=== PATIENT | female | born 2000 | race Caucasian/White ===

== ENCOUNTER 2020-03-31 14:33 | Outpatient (REF) | payer OTHER, SELFPAY | END 2020-03-31 14:34 | disposition home or self-care (01) | LOC: HO.LAB 14:33 | PROVIDERS: PCP Pediatrics; Visit Provider Internal Medicine | DX: Z20.828 Contact with and (suspected) exposure to other viral communicable diseases (principal) | CPT/HCPCS: C9803; U0003 ==

== ENCOUNTER 2020-05-06 07:56 | Outpatient (REF) | payer OTHER, SELFPAY | END 2020-05-06 07:57 | disposition home or self-care (01) | LOC: HO.LAB 07:56 | PROVIDERS: PCP Pediatrics; Visit Provider Internal Medicine | DX: Z20.828 Contact with and (suspected) exposure to other viral communicable diseases (principal) | CPT/HCPCS: C9803; U0003 ==

== ENCOUNTER 2020-12-07 21:11 | Emergency (ER) | payer OTHER, SELFPAY ==
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
[2020-12-07 21:28] VITALS: BP 116/76; PULSE 74; RESP 18; TEMP 37.1; O2SAT 100; BMI 23.4
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
[2020-12-07 22:15] LABS: UPreg QC Valid YES; Urine Pregnancy NEGATIVE (NEGATIVE)
[2020-12-07] MEDS: Acetaminophen 325 MG TABLET 975 MG PO (22:32)
--- NOTE | 2020-12-07 22:45 | PC.NURSE ---
Pt has moderate swelling at bridge of nose. Ice has been applied since arrival to EM. No unilat neuro deficits. PERRLA. lights down for comfort. Aware that she is NPO untill ct results. Mom at bedside.
== END 2020-12-07 23:24 | disposition home or self-care (01) ==
PROVIDERS: Physician Assistant; Emergency Provider Internal Medicine; PCP Pediatrics
DX: S02.2XXA Fracture of nasal bones, initial encounter for closed fracture (principal); W20.8XXA Other cause of strike by thrown, projected or falling object, initial encounter; Y93.9 Activity, unspecified; Y92.009 Unspecified place in unspecified non-institutional (private) residence as the place of occurrence of the external cause; Y99.9 Unspecified external cause status
CPT/HCPCS: 70486; 81025; 99283; 99284

== ENCOUNTER 2021-03-19 13:27 | Outpatient (REF) | payer OTHER, SELFPAY ==
--- NOTE | ~2021-03-19 | XR_ITS ---
EXAMINATION: XR ANKLE, RIGHT XR FOOT, RIGHT CLINICAL INFORMATION: Displaced fracture of the fifth metatarsal COMPARISON: 11/16/2019 TECHNIQUE: 3 views of the right foot. 3 views of the right ankle. FINDINGS: Right foot: There is no fracture or dislocation. Alignment is anatomic. Joint spaces are maintained. The soft tissues are unremarkable. Right ankle: No fracture or dislocation. The ankle mortise is congruent. No ankle joint effusion. The soft tissues appear unremarkable. XR/XR foot RT min 3V IMPRESSION: No osseous abnormality of the right foot or ankle.
--- NOTE | ~2021-03-19 | XR_ITS ---
EXAMINATION: XR ANKLE, RIGHT XR FOOT, RIGHT CLINICAL INFORMATION: Displaced fracture of the fifth metatarsal COMPARISON: 11/16/2019 TECHNIQUE: 3 views of the right foot. 3 views of the right ankle. FINDINGS: Right foot: There is no fracture or dislocation. Alignment is anatomic. Joint spaces are maintained. The soft tissues are unremarkable. Right ankle: No fracture or dislocation. The ankle mortise is congruent. No ankle joint effusion. The soft tissues appear unremarkable. XR/XR ankle RT min 3V IMPRESSION: No osseous abnormality of the right foot or ankle.
== END 2021-03-19 13:28 | disposition home or self-care (01) ==
LOC: HO.HOSX 13:27
PROVIDERS: PCP Pediatrics; Visit Provider Physician Assistant
DX: S92.351A Displaced fracture of fifth metatarsal bone, right foot, initial encounter for closed fracture (principal); S93.601A Unspecified sprain of right foot, initial encounter
CPT/HCPCS: 73610; 73630

== ENCOUNTER → 2021-07-19 13:14 | Outpatient (BNVA) | payer OTHER, SELFPAY | PROVIDERS: Visit Provider Advanced Practice Midwife ==

== ENCOUNTER 2021-07-22 14:43 | Outpatient (REF) | payer OTHER, SELFPAY | END 2021-07-22 14:44 | disposition home or self-care (01) | LOC: HO.LAB 14:43 | PROVIDERS: Visit Provider Otolaryngology | DX: J30.89 Other allergic rhinitis (principal) | CPT/HCPCS: 36415; 82785; 86003 ==

== ENCOUNTER 2021-12-10 07:23 | Outpatient (REF) | payer OTHER, SELFPAY ==
[2021-12-10 11:46] LABS: MANUAL DIFF FLAG NO
[2021-12-10 11:49] LABS: Basophils Percent Auto 0.4 % (0-2); Eosinophils Absolute Auto 0.1 X10*3/uL (0.0-0.4); Hematocrit 35.6 % (37.0-47.0); Hemoglobin 11.8 g/dl (12.0-16.0); Imm Gran Abs Auto 0.03 X10*3/uL (0.00-0.03); Imm Gran Pct Auto 0.3 % (0.0-0.4); Lymphocytes Absolute Auto 3.3 X10*3/uL (1.2-4.9); Lymphocytes Percent Auto 33.3 % (20-40); Mean Corpuscular HGB Conc 33.1 g/dl (31.0-35.0); Mean Corpuscular Hemoglobin 28.9 pg (27.0-33.0); Mean Corpuscular Volume 87.3 fL (80.0-98.0); Mean Platelet Volume 10.8 fL (9.4-12.3); Monocytes Absolute Auto 0.6 X10*3/uL (0.1-1.2); Monocytes Percent Auto 5.7 % (2-11); Neutrophils Absolute Auto 5.9 x10*3/uL (2.0-8.3); Neutrophils Percent Auto 59.3 % (45-73); Platelet Count 294 X10*3/uL (160-400); Red Blood Count 4.08 X10*6/uL (4.20-5.50); Red Cell Distribution Width 12.8 % (11.0-16.0)
[2021-12-10 12:02] LABS: Alanine Aminotransferase 16 U/L (0-31); Albumin Level 4.1 g/dL (3.5-5.0); Alkaline Phosphatase 69 U/L (39-117); Anion Gap 12 (12-20); Aspartate Amino Transferase 18 U/L (5-31); Bilirubin Total 0.6 mg/dL (0.0-1.0); Blood Urea Nitrogen 11 mg/dL (9-16); Carbon Dioxide 24 mmol/L (22-29); Chloride 105 mmol/L (96-108); Cholesterol 191 mg/dL; Estimated Glomerular Filt Rate > 60; Glucose Fasting 87 mg/dL (60-99); HDL Cholesterol 64 mg/dL; LDL Cholesterol Calculated 106 mg/dl; Potassium 4.2 mmol/L (3.3-5.1); Sodium 137 mmol/L (135-145); Total Protein 7.1 g/dL (6.5-8.0); Triglycerides 108 mg/dL
[2021-12-10 12:23] LABS: Syphilis Screen Nonreactive (Nonreactive)
[2021-12-10 12:24] LABS: HIV AB/AG Nonreactive (Nonreactive); HIV Num 1 0.08 S/CO (0.00-0.99)
[2021-12-10 13:46] LABS: CT PCR NOT DETECTED (Not Detect.); NG PCR NOT DETECTED (Not Detect.)
== END 2021-12-10 07:24 | disposition home or self-care (01) ==
LOC: HO.HMGCLDS 07:23
PROVIDERS: Visit Provider Internal Medicine
DX: Z00.00 Encounter for general adult medical examination without abnormal findings (principal); Z13.220 Encounter for screening for lipoid disorders; Z11.4 Encounter for screening for human immunodeficiency virus [HIV]; Z11.3 Encounter for screening for infections with a predominantly sexual mode of transmission; Z11.8 Encounter for screening for other infectious and parasitic diseases
CPT/HCPCS: 80053; 80061; 85025; 86780; 87389; 87491; 87591

== ENCOUNTER 2022-04-04 13:04 | Outpatient (REF) | payer OTHER, SELFPAY | END 2022-04-04 13:05 | disposition home or self-care (01) | LOC: HO.HOSX 13:04 | PROVIDERS: Visit Provider Physician Assistant | DX: Z13.89 Encounter for screening for other disorder (principal) ==

== ENCOUNTER 2022-12-13 08:07 | Outpatient (AMB) | payer OTHER, SELFPAY ==
[2022-12-13 08:09] VITALS: BP 122/74; PULSE 89; O2SAT 100; BMI 27.5
--- NOTE | 2022-12-13 08:09 | A.OFFPC_ITS ---
Vital Signs 12/13/22 08:09 Height 5 ft 5 in Weight 165 lb BMI 27.5 BP 122/74 Blood Pressure Location Lt brachial Position Sitting Pulse 89 Pulse Source Pulse Oximeter Pulse Oximetry (%) 100 Oxygen Delivery Method Room Air Intake Visit Reasons: pe Intake Note: Pt is here today for PE. Allergies No Known Allergies Allergy (Verified 12/13/22 08:10) Medication List - Last Reconciled 12/13/22 by Dora Quintero MD fexofenadine 180 mg PO DAILY norgestimate-ethinyl estradiol 0.25-35 mg-mcg (Sprintec (28)) 1 tab PO DAILY Tobacco use date assessed: 12/13/22 Dental Screening Dental Screen Date: 12/13/22 Did you have a dental visit in the last 12 months?: Yes Did you have a dental problem in the last 6 months where you did not have access to dental care?: No Was dental information given to patient?: Patient has dentist HPI pe HPI Details Pt presents for PE. 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 1. Little interest or pleasure in doing things: not at all 2. Feeling down, depressed, or hopeless: not at all 3. Trouble falling or staying asleep, or sleeping too much: not at all 4. Feeling tired or having little energy: not at all 5. Poor appetite or overeating: not at all 6. Feeling bad about yourself - or that you are a failure or have let yourself or your family down: not at all 7. Trouble concentrating on things, such as reading the newspaper or watching television: not at all 8. Moving or speaking so slowly that other people could have noticed. Or the opposite - being so fidgety or restless that you have been moving around a lot more than usual: not at all 9. Thoughts that you would be better off or of hurting yourself in some way: not at all Total score: 0 Depression Screening Interpretation: Negative Source: Developed by Drs. Howard Jorgensen, Elvie Corona, Rajesh Simpson and colleagues, with an educational zach from [employer]. Thrive Questionnaire Date Thrive assessed: 12/13/22 I am a: Patient What is your living situation today?: I have a steady place to live Within the past 12 months, did the food you bought not last and you didn't have the money to get more?: Never true Within the past 12 months, did you worry whether your food would run out before you got money to buy more?: Never true Do you have trouble paying for medicines?: No Do you have trouble getting transportation to medical appointments?: No Do you have trouble paying your heating and electricity bill?: No Do you have trouble taking care of your child, family member or friend?: No Do you have trouble with day-to-day activities such as bathing, preparing meals, shopping, managing finances, etc.?: No Are you currently unemployed and looking for a job?: No Are you interested in more education?: No Please select the resources that you would like help with: None Currently or been in a relationship where the following occur: no concerns reported AUDIT C Alcohol Use Questionnaire (AUDIT-C) 1. How often do you have a drink containing alcohol?: 2-4 times a month 2. How many drinks containing alcohol do you have on a typical day when you are drinking?: 1 or 2 3. How often do you have six or more drinks on one occasion?: Never Total Score: 2 HEIDI-7 AMB Questionnaire HEIDI-7 Date HEIDI - 7 assessed: 12/13/22 Feeling nervous, anxious, or on edge: 0 = Not at all Not being able to stop or control worryin = Not at all Worrying too much about different things: 0 = Not at all Trouble relaxin = Not at all Being so restless that it is hard to sit still: 0 = Not at all Becoming easily annoyed or irritable: 0 = Not at all Feeling afraid as if something awful might happen: 0 = Not at all Total HEIDI-7 score (0-4 normal; 5-9 mild; 10-14 moderate; 15-21 severe): 0 Source: Developed by Drs. Howard Jorgensen, Elvie Corona, Rajesh Simpson and colleagues, with an educational zach from [employer]. Review of Systems Const All systems reviewed & are unremarkable except as noted in HPI and below Reports no additional complaints Eyes Reports no additional complaints ENT Reports no additional complaints Card Reports no additional complaints Resp Reports no additional complaints GI Reports no additional complaints Reports no additional complaints Physical exam (Primary Care) Vital Signs: Last Vital Signs Pulse 89 12/13/22 08:09 BP 122/74 12/13/22 08:09 Pulse Ox 100 12/13/22 08:09 Oxygen Delivery Method Room Air 12/13/22 08:09 BMI result Body Mass Index 27.5 Tobacco/Smoking Status: Tobacco use Status Tobacco use date assessed 12/13/22 12/13/22 08:14 Patient Tobacco Use Status Never used Tobacco 12/13/22 08:14 e-Cigarette/Vaping Use Never Used 12/13/22 08:14 PHQ-9: PHQ-9 Score PHQ-9: Total score 0 12/13/22 08:14 Depression Screening Interpretation: Negative Thrive Assessment: Date of Thrive Assessment Date Thrive assessed 12/13/22 12/13/22 08:14 Currently or been in a relationship where the following occur: no concerns reported Const General: no acute distress HENMT Head: Yes normal to inspection Ears: hearing grossly normal bilaterally Mouth: Normal oral and palatal mucosa present Throat: Yes posterior oropharynx normal Eyes General: appearance normal, both eyes and all related structures Neck Neck: Yes no lymphadenopathy and Yes supple Resp Effort & Inspection: normal respiratory effort Auscultation: clear to auscultation bilaterally Cardio Rhythm: regular rhythm Heart sounds: S1 normal heart sound present and S2 normal heart sound present GI Inspection: Yes normal to inspection Palpation (GI): Soft to palpation Percussion: Yes normal to percussion Auscultation: normal bowel sounds Assessment and Plan Assessment & Plan (1) Annual physical exam: Code(s): Z00.00 - Encounter for general adult medical examination without abnormal findings Plan: Well-balanced diet regular exercise discussed with the patient to have a blood work today. 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 Panel Today Z00.00 - Encounter for general adult medical examination without abnormal findings Medications: New fexofenadine 180 mg PO DAILY 90 tabs 3RF Refilled norgestimate-ethinyl estradiol 0.25-35 mg-mcg (Sprintec (28)) 1 tab PO DAILY 84 tabs 3RF Coding Level of Care Code Est Pt Prev Care 18-39y(22650) Diagnoses Annual physical exam Z00.00
== END 2022-12-13 08:52 | disposition home or self-care (01) ==
PROVIDERS: Visit Provider Internal Medicine
DX: Z00.00 Encounter for general adult medical examination without abnormal findings (principal)
CPT/HCPCS: 99395

== ENCOUNTER 2022-12-13 08:48 | Outpatient (REF) | payer OTHER, SELFPAY ==
[2022-12-13 11:15] LABS: MANUAL DIFF FLAG NO
[2022-12-13 11:54] LABS: Basophils Percent Auto 0.5 % (0-2); Eosinophils Absolute Auto 0.1 X10*3/uL (0.0-0.4); Eosinophils Percent Auto 0.6 % (0-4); Hematocrit 38.6 % (37.0-47.0); Hemoglobin 12.4 g/dl (12.0-16.0); Imm Gran Abs Auto 0.02 X10*3/uL (0.00-0.03); Imm Gran Pct Auto 0.2 % (0.0-0.4); Lymphocytes Absolute Auto 2.5 X10*3/uL (1.2-4.9); Lymphocytes Percent Auto 30.1 % (20-40); Mean Corpuscular HGB Conc 32.1 g/dl (31.0-35.0); Mean Corpuscular Hemoglobin 28.2 pg (27.0-33.0); Mean Corpuscular Volume 87.7 fL (80.0-98.0); Mean Platelet Volume 10.5 fL (9.4-12.3); Monocytes Absolute Auto 0.6 X10*3/uL (0.1-1.2); Neutrophils Absolute Auto 5.1 x10*3/uL (2.0-8.3); Neutrophils Percent Auto 61.6 % (45-73); Platelet Count 331 X10*3/uL (160-400); Red Cell Distribution Width 12.7 % (11.0-16.0); White Blood Count 8.3 X10*3/uL (4.8-10.8)
[2022-12-13 12:26] LABS: Alanine Aminotransferase 17 U/L (0-31); Alkaline Phosphatase 87 U/L (39-117); Anion Gap 9 (12-20); Aspartate Amino Transferase 16 U/L (5-31); Bilirubin Total 0.3 mg/dL (0.0-1.0); Blood Urea Nitrogen 11 mg/dL (9-16); Calcium 9.9 mg/dL (8.4-10.2); Carbon Dioxide 28 mmol/L (22-29); Chloride 106 mmol/L (96-108); Estimated Glomerular Filt Rate > 60; Glucose Random 83 mg/dL (60-115); Iron 117 mcg/dL (30-160); Percent Iron Saturation 35 % (15-50); Sodium 139 mmol/L (135-145); Total Iron Binding Capacity 333 mcg/dL (228-428); Total Protein 7.5 g/dL (6.5-8.0); Unsaturated Iron Binding 216 ug/dL
[2022-12-13 13:28] LABS: Vitamin B12 343 pg/mL (200-900)
== END 2022-12-13 08:49 | disposition home or self-care (01) ==
LOC: HO.HMGCLDS 08:48
PROVIDERS: PCP Internal Medicine; Visit Provider Internal Medicine
DX: Z00.00 Encounter for general adult medical examination without abnormal findings (principal)
CPT/HCPCS: 36415; 80053; 82607; 82746; 83540; 85025

== ENCOUNTER 2022-12-28 17:38 | Emergency (ER) | payer OTHER, SELFPAY ==
--- NOTE | ~2022-12-28 | XR_ITS ---
EXAMINATION: XR FINGER, LEFT CLINICAL INFORMATION: Crush injury to the middle finger. COMPARISON: None available. TECHNIQUE: Three views of the left hand third digit. FINDINGS: No fracture or dislocation. Alignment is maintained. Joint spaces are maintained. Soft tissue irregularity at the palmar aspect of the distal third digit. No radiopaque foreign body. XR/XR finger LT min 2V IMPRESSION: Soft tissue injury of the distal third digit. No radiopaque foreign body. No fracture or malalignment.
[2022-12-28 18:02] VITALS: BP 133/77; PULSE 91; RESP 18; TEMP 36.7; O2SAT 99; BMI 25.8
--- NOTE | 2022-12-28 18:02 | ED_ITS ---
HPI - Wound/Laceration General Chief Complaint: Wound/Laceration Stated Complaint: Laceration left middle finger Time Seen by Provider: 12/28/22 19:20 Source: patient Mode of arrival: ambulatory Limitations: no limitations History of Present Illness HPI narrative: 22 yo female presenting with a left middle finger injury sustained at work just prior to arrival after 2 metal plates crushed her finger. She states the pain was initially 10/10 and she thought she lost the tip of the finger. She reports pain and a flap of skin on the palmar side of the finger. She is able to flex and extend. No active bleeding. it is numb from holding direct pressure. No other injuries. Onset (ago): minute(s) Extremity Location: left: hand (middle finger) Place: work Patient tetanus UTD: No Context: accidental Associated symptoms: pain and loss of feeling/numbness Treatments prior to arrival: bandage Related Data Previous Rx's Medication Instructions Recorded fexofenadine 180 mg tablet 180 mg PO DAILY #90 tabs 12/13/22 norgestimate 0.25 mg-ethinyl 1 tab PO DAILY #84 tabs 12/13/22 estradiol 35 mcg tablet (Sprintec (28)) Allergies Allergy/AdvReac Type Severity Reaction Status Date / Time No Known Allergies Allergy Verified 12/13/22 08:10 Review of Systems Review of Systems: Yes all other systems are reviewed and are negative [facility] Past Medical History Surgical History H/O: knee surgery Family History Family History Father DM type 2 (diabetes mellitus, type 2) CAD (coronary artery disease), Onset Age: 50 Social History Social History Household Members 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, 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 Oriented X3. No acute distress. HEENT: normal inspection CVS: Normal heart rate and rhythm. Pulses normal. Respiratory: No respiratory distress. Skin: Skin warm and dry. Normal skin color. Normal skin turgor. No rashes. Extremities: left middle finger with a 1.5 cm area of blistering on the pulp with associated superficial avulsion flap, FROM of the digit. cap refill <3 sec Neuro: Oriented X 3. No motor deficit. No sensory deficit. Medications Administered Discontinued Medications Generic Name Dose Route Start Last Admin Trade Name Freq PRN Reason Stop Dose Admin Diphtheria/Tetanus/Acell Pertussis 0.5 ml 12/28/22 18:06 12/28/22 19:25 Diphth,Pertus(Acell),Tet Adult 0.5 Ml Syringe IM 12/28/22 18:07 0.5 ml .ONCE ONE Administration Medical Decision Making Medical Decision Making MDM Narrative: 22 yo female presenting with left middle finger crush injury. FROM on exam. Xray is negative for acute fracture. wound was soaked in antiseptic solution and tdap given. wound debrided and dermabond applied for protective dressing. finger splint provided for protection/comfort. stable for d/c home with supportive care Differential Diagnosis Differential Diagnoses: The differential diagnosis associated with the pres entation includes open fracture, crush injury, superficial avulsion, hematoma Independent Interpretation I performed an independent interpretation of an: Plain X-Ray Interpretation: no apprecaited fx Radiology Impression Discussion of test interpretation with radiology: I have reviewed the radiologist's reading. Radiologist Impression: ?XR/XR finger LT min 2V IMPRESSION: Soft tissue injury of the distal third digit. No radiopaque foreign body. No fracture or malalignment. Independent Historian Clinical information obtained from an independent historian. History obtained from or confirmed by: Parent External Record Review External record reviewed: Prior outpatient labs and Prior outpatient radiology Prescription Management I considered prescription management with: Pain Medication and Antibiotic Critical Care Time Critical Care Time Critical Care Time: No Discharge Plan Discharge Clinical Impression: Crush injury to finger Patient Disposition: Home, Self-Care Instructions: Crush Injury (ED) Additional Instructions: your x-ray today did not show any broken bones the skin glue applied will fall off on its own, usually within 1 week do not get it wet for 24 hours, then you can briefly wash with soap and water then pat dry take motrin and tylenol as needed for pain ice and elevate to help with pain, swelling and throbbing wear the provided finger splint as needed for comfort Prescriptions: No Action fexofenadine 180 mg tablet 180 mg PO DAILY Qty: 90 3RF norgestimate-ethinyl estradiol [Sprintec (28)] 0.25-35 mg-mcg tablet 1 tab PO DAILY Qty: 84 3RF Interventions: ED Discharge Assessment Last Done: 12/28/22 19:53 Discharge Date/Time: 12/28/22 19:55
[2022-12-28] MEDS: Diphth,Pertus(ACell),Tet Adult 0.5 ML SYRINGE IM (19:25)
== END 2022-12-28 19:55 | disposition home or self-care (01) ==
LOC: HO.ED 19:53
PROVIDERS: Emergency Provider Emergency Medicine; PCP Internal Medicine
DX: S67.193A Crushing injury of left middle finger, initial encounter (principal); S61.213A Laceration without foreign body of left middle finger without damage to nail, initial encounter; S60.413A Abrasion of left middle finger, initial encounter; R20.0 Anesthesia of skin; Y29.XXXA Contact with blunt object, undetermined intent, initial encounter; Y93.9 Activity, unspecified; Y92.9 Unspecified place or not applicable; Y99.9 Unspecified external cause status; Z23 Encounter for immunization; Z79.899 Other long term (current) drug therapy
CPT/HCPCS: 29130; 73140; 90471; 90715; 99282; 99284

== ENCOUNTER 2023-04-12 12:17 | Outpatient (REF) | payer OTHER, SELFPAY ==
--- NOTE | ~2023-04-12 | MR_ITS ---
EXAMINATION: MR KNEE WITHOUT CONTRAST, LEFT CLINICAL INFORMATION: MPFL. Possible recurrent tear, left knee. COMPARISON: None available. TECHNIQUE: MRI of the knee without contrast was performed using routine sequences on a high-field scanner. FINDINGS: MENISCI: Medial Meniscus: Intact. Lateral Meniscus: Intact. LIGAMENTS: Cruciate: Intact. Collateral: There is mild edema signal around the MCL proximally, favored to be related to the adjacent MPFL abnormality. MCL is intact. LCL complex is unremarkable. EXTENSOR MECHANISM: The MPFL graft is not well seen within 1.5 cm of the soft tissue anchor at the medial femoral epicondyle, concerning for a tear with lateral retraction of the graft. The graft is mildly edematous at the patellar attachment which could be due to a strain or scar tissue. Quadriceps tendons are intact. ARTICULAR CARTILAGE/BONE: Patellofemoral Compartment: The patella is dislocated laterally on the fully extended images. Patellar articular cartilage appears relatively well preserved without discrete defects. Surface irregularity is suspected at the inferior margins of the medial facet and median ridge. The trochlea is shallow with a lateral inclination angle of 3 degrees and a sulcus angle of 152 degrees. TT-TG distance measures 2 cm. Trochlear cartilage appears normal. Focal marrow edema signal at the anterior margin of the medial femoral condyle may correspond to an osseous contusion. Medial Compartment: Normal. Lateral Compartment: An osseous contusion is present at the lateral margin of the lateral femoral condyle near the sulcus terminalis. No appreciable chondral injury in this region. JOINT FLUID AND BURSAE: Small joint effusion. No Avina's cyst. MR/MR knee LT wo con IMPRESSION: 1. Lateral dislocation of the patella with a tear of the MPFL graft at the femoral attachment site. 2. 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 3. Osseous contusion at the anterior margin of the medial femoral condyle and at the lateral margin of the lateral femoral condyle. 4. Small joint effusion.
== END 2023-04-12 12:18 | disposition home or self-care (01) ==
LOC: HO.MRI 12:17
PROVIDERS: PCP Internal Medicine; Visit Provider Physician Assistant
DX: S83.015D Lateral dislocation of left patella, subsequent encounter (principal)
CPT/HCPCS: 73721

== ENCOUNTER 2023-12-19 08:18 | Outpatient (AMB) | payer OTHER, SELFPAY ==
[2023-12-19 08:25] VITALS: BP 118/74; PULSE 74; O2SAT 100; BMI 25.8
--- NOTE | 2023-12-19 08:25 | A.OFFPC_ITS ---
Vital Signs 12/19/23 08:25 Height 5 ft 6 in Weight 160 lb BMI 25.8 BP 118/74 Blood Pressure Location Lt brachial Position Sitting Pulse 74 Pulse Source Pulse Oximeter Pulse Oximetry (%) 100 Oxygen Delivery Method Room Air Intake Visit Reasons: PE Intake Note: Pt is here today for PE. Allergies pineapple Allergy (Verified 12/19/23 08:29) Hives shrimp Allergy (Verified 12/19/23 08:29) Unknown Tobacco use date assessed: 12/19/23 Dental Screening Dental Screen Date: 12/19/23 Did you have a dental visit in the last 12 months?: Yes Did you have a dental problem in the last 6 months where you did not have access to dental care?: No Was dental information given to patient?: Patient has dentist HPI PE HPI Details Pt presents for PE. 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 1. Little interest or pleasure in doing things: not at all 2. Feeling down, depressed, or hopeless: not at all 3. Trouble falling or staying asleep, or sleeping too much: not at all 4. Feeling tired or having little energy: not at all 5. Poor appetite or overeating: not at all 6. Feeling bad about yourself - or that you are a failure or have let yourself or your family down: not at all 7. Trouble concentrating on things, such as reading the newspaper or watching television: not at all 8. Moving or speaking so slowly that other people could have noticed. Or the opposite - being so fidgety or restless that you have been moving around a lot more than usual: not at all 9. Thoughts that you would be better off or of hurting yourself in some way: not at all Total score: 0 Depression Screening Interpretation: Negative Depression Screening Done: Yes Source: Developed by Drs. Howard Jorgensen, Elvie Corona, Rajesh Simpson and colleagues, with an educational zach from [employer]. Thrive Questionnaire Date Thrive assessed: 12/19/23 I am a: Patient What is your living situation today?: I have a steady place to live Within the past 12 months, did the food you bought not last and you didn't have the money to get more?: Never true Within the past 12 months, did you worry whether your food would run out before you got money to buy more?: Never true Do you have trouble paying for medicines?: No Do you have trouble getting transportation to medical appointments?: No Do you have trouble paying your heating and electricity bill?: No Do you have trouble taking care of your child, family member or friend?: No Do you have trouble with day-to-day activities such as bathing, preparing meals, shopping, managing finances, etc.?: No Are you currently unemployed and looking for a job?: No Are you interested in more education?: No Please select the resources that you would like help with: Housing/Correction Currently or been in a relationship where the following occur: No concerns reported THRIVE Score: 0 AUDIT C Alcohol Use Questionnaire (AUDIT-C) 1. How often do you have a drink containing alcohol?: 2-4 times a month 2. How many drinks containing alcohol do you have on a typical day when you are drinking?: 1 or 2 3. How often do you have six or more drinks on one occasion?: Never Total Score: 2 HEIDI-7 AMB Questionnaire HEIDI-7 Date HEIDI - 7 assessed: 12/19/23 Feeling nervous, anxious, or on edge: 0 = Not at all Not being able to stop or control worryin = Not at all Worrying too much about different things: 0 = Not at all Trouble relaxin = Not at all Being so restless that it is hard to sit still: 0 = Not at all Becoming easily annoyed or irritable: 0 = Not at all Feeling afraid as if something awful might happen: 0 = Not at all Total HEDII-7 score (0-4 normal; 5-9 mild; 10-14 moderate; 15-21 severe): 0 Source: Developed by Drs. Howard Jorgensen, Elvie Corona, Rajesh Simpson and colleagues, with an educational zcah from [employer]. Review of Systems Const All systems reviewed & are unremarkable except as noted in HPI and below Reports no additional complaints Eyes Reports no additional complaints ENT Reports no additional complaints Card Reports no additional complaints Resp Reports no additional complaints GI Reports no additional complaints Reports no additional complaints Musc Reports no additional complaints Physical exam (Primary Care) Vital Signs: Last Vital Signs Pulse 74 12/19/23 08:25 BP 118/74 12/19/23 08:25 Pulse Ox 100 12/19/23 08:25 Oxygen Delivery Method Room Air 12/19/23 08:25 BMI result Body Mass Index 25.8 Tobacco/Smoking Status: Tobacco use Status Tobacco use date assessed 12/19/23 12/19/23 08:30 Patient Tobacco Use Status Never used Tobacco 12/19/23 08:30 e-Cigarette/Vaping Use Never Used 12/19/23 08:27 PHQ-9: PHQ-9 Score PHQ-9: Total score 0 12/19/23 09:12 Depression Screening Interpretation: Negative Thrive Assessment: Date of Thrive Assessment Date Thrive assessed 12/19/23 12/19/23 08:32 Currently or been in a relationship where the following occur: No concerns reported Const General: no acute distress HENMT Head: Yes normal to inspection Face and sinus: Yes normal facial exam Eyes General: appearance normal, both eyes and all related structures Neck Neck: Yes supple Resp Effort & Inspection: normal respiratory effort Auscultation: clear to auscultation bilaterally Cardio Rhythm: regular rhythm Heart sounds: S1 normal heart sound present and S2 normal heart sound present GI Inspection: Yes normal to inspection Palpation (GI): Soft to palpation Percussion: Yes normal to percussion Auscultation: normal bowel sounds Assessment and Plan Assessment & Plan (1) Patellar instability of left knee: Code(s): M25.362 - Other instability, left knee (2) Annual physical exam: Code(s): Z00.00 - Encounter for general adult medical examination without abnormal findings Plan: Well-balanced diet regular physical activity discussed with the patient she will return for fasting blood work. Patient is up-to-date with pelvic exam by Gynecology Coding Level of Care Code Est Pt Prev Care 18-39y(22130) Diagnoses Patellar instability of left knee M25.362 Annual physical exam Z00.00
== END 2023-12-19 10:32 | disposition home or self-care (01) ==
PROVIDERS: PCP Internal Medicine; Visit Provider Internal Medicine
DX: M25.362 Other instability, left knee (principal); Z00.00 Encounter for general adult medical examination without abnormal findings
CPT/HCPCS: 99395

== ENCOUNTER 2024-01-22 20:32 | Emergency (ER) | payer OTHER, SELFPAY ==
--- NOTE | ~2024-01-22 | XR_ITS ---
EXAMINATION: XR FINGER, RIGHT CLINICAL INFORMATION: Injury to the fifth digit COMPARISON: None available. TECHNIQUE: Three views of the right small finger. FINDINGS: The bones and soft tissues are normal. No fracture. Alignment is anatomic. Joint spaces are maintained. XR/XR finger RT min 2V IMPRESSION: Normal finger radiographs. Electronically signed by: Ezequiel Sanz DO 01/22/2024 11:03 PM EDT RP
[2024-01-22 21:07] VITALS: BP 120/72; PULSE 82; RESP 16; TEMP 36.8; O2SAT 100; BMI 26.9
[2024-01-22] MEDS: Lidocaine HCl 1 % 20 ML VIAL 5 ML INFILTRATI (22:14)
--- NOTE | 2024-01-22 22:38 | ED.WOUNDLAC ---
HPI - Wound/Laceration General Chief Complaint: Wound/Laceration Stated Complaint: RT pinky lac Time Seen by Provider: 01/22/24 21:33 Source: patient and family Mode of arrival: ambulatory Limitations: no limitations History of Present Illness ED Provider: Dr. Klarissa Coon HPI narrative: Patient comes to the emergency room complaining of a laceration to the right pinky finger. Patient states that she was slicing vegetables with a mandolin slicer, she accidentally sliced the palmar aspect of her right pinky finger. Patient states that last year she got a tetanus shot for another injury had. Related Data Previous Rx's ?Medication ?Instructions ?Recorded fexofenadine 180 mg tablet 180 mg PO DAILY #90 tabs 12/13/22 norgestimate 0.25 mg-ethinyl 1 tab PO DAILY #84 tabs 11/27/23 estradiol 35 mcg tablet Allergies Allergy/AdvReac Type Severity Reaction Status Date / Time pineapple Allergy Hives Verified 01/22/24 21:14 shrimp Allergy Unknown Verified 01/22/24 21:14 Review of Systems Review of Systems: Constitutional : No Weight loss, No Fever, No Chills, No Night Sweats, No Fatigue, No Malaise ENT/Mouth : No Hearing loss, No Ear Pain, No Nasal Congestion, No Sinus Pain, No Hoarseness, No sore throat, No Rhinorrhea, No Swallowing Difficulty Eyes: No Eye Pain, No Swelling, No Redness, No Foreign Body, No Discharge, No Vision Changes Cardiovascular : No Chest Pain, No SOB, No Dyspnea on Exertion, No Orthopnea, No Edema, No Palpitations Respiratory : No Cough, No Sputum, No Wheezing, No Smoke Exposure, No Dyspnea Gastrointestinal : No Nausea, No Vomiting, No Diarrhea, No Constipation, No abdominal Pain, No Hematochezia, No Melena Genitourinary : no irregular bleeding, No Dysuria, No Urinary Frequency, No Hematuria, No Urinary Incontinence, No Urgency, No Flank Pain, No Urinary Flow Changes, No Hesitancy Musculoskeletal : No joint pain, No Myalgias, No Joint Swelling Skin : Laceration to the palmar aspect of the right pinky finger Neuro : No Weakness, No Numbness, No Paresthesias, No Loss of Consciousness, No Dizziness, No Headache Psych : No Anxiety/Panic, No Depression, No SI/HI/AH/VH, No Social Issues, Heme/Lymph: No Bruising, No Bleeding,No Lymphadenopathy Endocrine : No Polyuria, No Polydipsia, No Temperature Intolerance [facility] Past Medical History Surgical History H/O left knee surgery H/O: knee surgery Family History Family History Father DM type 2 (diabetes mellitus, type 2) CAD (coronary artery disease), Onset Age: 50 Social History Social History Household Members 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, 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[employer], 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 Alcohol intake: never Patient Tobacco Use Status: Never used Tobacco e-Cigarette/Vaping Use: Never Used Advance Directives: No Advance Directives Information Provided: No Do you have a plan to hurt others: No Plan service: No Current occupational status: employed Gender identity: Female Cognitive needs: No Hearing needs: No Vision needs: No Physical Exam Vital Signs: Vital Signs: Last Vital Signs Temp 98.3 F 01/22/24 21:07 Pulse 82 01/22/24 21:07 Resp 16 01/22/24 21:07 BP 120/72 01/22/24 21:07 Pulse Ox 100 01/22/24 21:07 O2 Del Method Room Air 01/22/24 21:07 BMI result Body Mass Index 26.9 Const: Other: Appearance: Alert. Oriented X3. No acute distress. Eyes: Pupils equal, round and reactive to light. ENT: Pharynx normal. Neck: Normal inspection. Neck supple. No lymph nodes noted. No crepitus CVS: Normal heart rate and rhythm. Pulses normal. Normal S1 and S2 Respiratory: No respiratory distress. Breath sounds normal. No Wheezing. No rales Abdomen: Soft and nontender. No rigidity. No distention. Skin: Skin warm and dry. Normal skin color. Normal skin turgor. See extremity below Extremities: No lower extremity edema. No Lacerations. No Rash on the right hand, patient has a 3 cm vertical laceration in the palmar aspect of the right 5th digit. Patient is able to flex and extend the fingers. Finger was visualized under a bloodless field, no tendon injuries visualized Neuro: Oriented X 3. No motor deficit. No sensory deficit. Moving all extremities. No slurred speech. CN 2 through 12 grossly intact Psych: calm, cooperative, normal affect Medications Administered Discontinued Medications Generic Name Dose Route Start Last Admin Trade Name Daniel PRN Reason Stop Dose Admin Lidocaine HCl 5 ml 01/22/24 22:08 01/22/24 22:14 Lidocaine Hcl 1 % 20 Ml Vial INFILTRATI 01/22/24 22:09 5 ml ONCE ONE Administration Medical Decision Making Medical Decision Making MDM Narrative: -patient is up-to-date with her immunizations and Tdap -patient received 7 stitches, tolerated well the procedure Procedures Laceration Laceration 1: Site: upper extremity Side (If applicable): right Size (cm): 3 Description: linear Depth: simple, single layer Local Anesthetic: lidocaine 1% Amount of anesthesia used (mL): 6 Pre-repair: wound explored Skin layer closed with: nylon Size (cm): 5-0 Number of sutures: 7 Technique: simple, interrupted Discharge Plan Discharge Clinical Impression: Laceration Patient Disposition: Home, Self-Care Instructions: Care For Your Stitches (ED), Finger Laceration (ED) Additional Instructions: Your stitches need to be removed in 7-10 days. Please follow-up with your primary care physician tomorrow. If you have any worsening or new symptoms, please return to the emergency room or call 911 Prescriptions: No Action norgestimate-ethinyl estradiol 0.25-35 mg-mcg tablet 1 tab PO DAILY Qty: 84 3RF fexofenadine 180 mg tablet 180 mg PO DAILY Qty: 90 3RF Stand Alone Forms: Work/School Release Print Language: Albanian
[2024-01-22] MEDS: Acetaminophen 325 MG TABLET 650 MG PO (22:48)
[2024-01-22 22:56] VITALS: BP 129/76; PULSE 71; RESP 14; TEMP 36.4; O2SAT 100
== END 2024-01-22 22:57 | disposition home or self-care (01) ==
PROVIDERS: Emergency Provider Emergency Medicine; PCP Internal Medicine
DX: S61.216A Laceration without foreign body of right little finger without damage to nail, initial encounter (principal); W27.4XXA Contact with kitchen utensil, initial encounter; Y93.G3 Activity, cooking and baking; Y92.9 Unspecified place or not applicable; Y99.9 Unspecified external cause status
CPT/HCPCS: 12002; 73140; 99283; 99284

== ENCOUNTER 2024-04-15 10:22 | Outpatient (REF) | payer OTHER, SELFPAY | END 2024-04-15 10:23 | disposition home or self-care (01) | LOC: HO.HOSX 10:22 | PROVIDERS: Visit Provider Physician Assistant | DX: Z13.89 Encounter for screening for other disorder (principal) ==

== ENCOUNTER 2025-01-15 09:02 | Outpatient (REF) | payer OTHER, SELFPAY ==
[2025-01-15 13:16] LABS: MANUAL DIFF FLAG NO
[2025-01-15 13:55] LABS: Appearance Urine Turbid; Glucose Urine UA Negative (Negative); PH 6.0 (5.0-9.0); Specific Gravity - Urine >= 1.030 (1.005-1.025)
[2025-01-15 14:06] LABS: Hematocrit 36.4 % (37.0-47.0); Hemoglobin 11.7 g/dl (12.0-16.0); Imm Gran Abs Auto 0.03 X10*3/uL (0.00-0.03); Imm Gran Pct Auto 0.3 % (0.0-0.4); Lymphocytes Absolute Auto 3.0 X10*3/uL (1.2-4.9); Mean Corpuscular HGB Conc 32.1 g/dl (31.0-35.0); Mean Corpuscular Hemoglobin 28.9 pg (27.0-33.0); Mean Corpuscular Volume 89.9 fL (80.0-98.0); NRBC Abs Auto 0.000 X10*3/uL (0.0-0.012); NRBC Pct Auto 0.0 /100WBC (0.0-0.2); Platelet Count 327 X10*3/uL (160-400); Red Blood Count 4.05 X10*6/uL (4.20-5.50); White Blood Count 9.4 X10*3/uL (4.8-10.8)
[2025-01-15 14:43] LABS: Alanine Aminotransferase 14 U/L (0-31); Albumin Level 4.3 g/dL (3.5-5.0); Alkaline Phosphatase 65 U/L (39-117); Anion Gap 11 (12-20); Aspartate Amino Transferase 20 U/L (5-31); Blood Urea Nitrogen 9 mg/dL (9-16); Calcium 9.2 mg/dL (8.4-10.2); Carbon Dioxide 23 mmol/L (22-29); Chloride 107 mmol/L (96-108); Cholesterol 185 mg/dL (<200); Estimated Glomerular Filt Rate > 60; HDL Cholesterol 63 mg/dL (>40); Potassium 4.0 mmol/L (3.3-5.1); Sodium 137 mmol/L (135-145); Total Protein 7.3 g/dL (6.5-8.0); Triglycerides 99 mg/dL (<150)
[2025-01-16 03:41] LABS: Syphilis Screen Nonreactive (Nonreactive)
[2025-01-16 03:55] LABS: HBS Num1 75.08 mIU/mL (0-7.99); HIV Num 1 0.06 S/CO (0.00-0.99); ~Hepatitis B Surface Antibody REACTIVE (Nonreactive)
[2025-01-16 04:29] LABS: CT PCR Urine NOT DETECTED (Not Detect.); NG PCR Urine NOT DETECTED (Not Detect.)
[2025-01-16 10:52] LABS: Rubeola IgG (Measles) >300.00 AU/mL
== END 2025-01-15 09:03 | disposition home or self-care (01) ==
LOC: HO.HMGCLDS 09:02
PROVIDERS: PCP Internal Medicine; Visit Provider Internal Medicine
DX: Z00.00 Encounter for general adult medical examination without abnormal findings (principal)
CPT/HCPCS: 80053; 80061; 81001; 85025; 86706; 86735; 86762; 86765; 86780; 86787; 87389; 87491; 87591; 96127

== ENCOUNTER 2025-01-15 09:02 | Outpatient (AMB) | payer OTHER, SELFPAY ==
[2025-01-15 09:07] VITALS: BP 118/76; PULSE 63; RESP 18; TEMP 36.7; O2SAT 100; BMI 26.8
--- NOTE | 2025-01-15 09:07 | A.OFFPC_ITS ---
Vital Signs 01/15/25 09:07 Height 5 ft 5 in Weight 161 lb BMI 26.8 BP 118/76 Blood Pressure Location Lt brachial Position Sitting Respiration 18 Pulse 63 Pulse Source Pulse Oximeter Temp 98.1 F Temp Source Oral Pulse Oximetry (%) 100 Oxygen Delivery Method Room Air Intake Visit Reasons: PE Intake Note: Pt is here today for PE. Allergies pineapple Allergy (Verified 01/15/25 09:08) Hives shrimp Allergy (Verified 01/15/25 09:08) Unknown Medication List - Last Reconciled 01/15/25 by Dora Quintero MD fexofenadine 180 mg PO DAILY norgestimate-ethinyl estradiol 0.25-0.035 mg 1 tab PO DAILY Tobacco use date assessed: 01/15/25 Dental Screening Dental Screen Date: 01/15/25 Did you have a dental visit in the last 12 months?: Yes Did you have a dental problem in the last 6 months where you did not have access to dental care?: No Was dental information given to patient?: Patient has dentist HPI PE HPI Details Pt presents for PE. 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 1. Little interest or pleasure in doing things: not at all 2. Feeling down, depressed, or hopeless: not at all 3. Trouble falling or staying asleep, or sleeping too much: not at all 4. Feeling tired or having little energy: not at all 5. Poor appetite or overeating: not at all 6. Feeling bad about yourself - or that you are a failure or have let yourself or your family down: not at all 7. Trouble concentrating on things, such as reading the newspaper or watching television: not at all 8. Moving or speaking so slowly that other people could have noticed. Or the opposite - being so fidgety or restless that you have been moving around a lot more than usual: not at all 9. Thoughts that you would be better off or of hurting yourself in some way: not at all Total score: 0 Depression Screening Interpretation: Negative Depression Screening Done: Yes 78126 - PHQ-9 Billing: Yes Source: Developed by Drs. Howard Jorgensen, Elvie Corona, Rajesh Simpson and colleagues, with an educational zach from [employer]. Thrive Questionnaire Date Thrive assessed: 01/15/25 I am a: Patient What is your living situation today?: I have a steady place to live Within the past 12 months, did the food you bought not last and you didn't have the money to get more?: Never true Within the past 12 months, did you worry whether your food would run out before you got money to buy more?: Never true Do you have trouble paying for medicines?: No Do you have trouble getting transportation to medical appointments?: No Do you have trouble paying your heating and electricity bill?: No Do you have trouble taking care of your child, family member or friend?: No Do you have trouble with day-to-day activities such as bathing, preparing meals, shopping, managing finances, etc.?: No Are you currently unemployed and looking for a job?: No Are you interested in more education?: No Please select the resources that you would like help with: None Currently or been in a relationship where the following occur: No concerns reported THRIVE Score: 0 AUDIT C Alcohol Use Questionnaire (AUDIT-C) 1. How often do you have a drink containing alcohol?: Monthly or less 2. How many drinks containing alcohol do you have on a typical day when you are drinking?: 1 or 2 3. How often do you have six or more drinks on one occasion?: Never Total Score: 1 HEIDI-7 AMB Questionnaire HEIDI-7 Date HEIDI - 7 assessed: 01/15/25 Feeling nervous, anxious, or on edge: 0 = Not at all Not being able to stop or control worryin = Not at all Worrying too much about different things: 0 = Not at all Trouble relaxin = Not at all Being so restless that it is hard to sit still: 0 = Not at all Becoming easily annoyed or irritable: 0 = Not at all Feeling afraid as if something awful might happen: 0 = Not at all Total HEIDI-7 score (0-4 normal; 5-9 mild; 10-14 moderate; 15-21 severe): 0 Source: Developed by Drs. Howard Jorgensen, Elvie Corona, Rajesh Simpson and colleagues, with an educational zach from [employer]. HEIDI-7 Assessment Billing HEIDI-7 Assessment Tool: HEIDI-7 Assessment 47839 Review of Systems Const All systems reviewed & are unremarkable except as noted in HPI and below Reports no additional complaints Eyes Reports no additional complaints ENT Reports no additional complaints Card Reports no additional complaints Resp Reports no additional complaints GI Reports no additional complaints Reports no additional complaints Musc Reports no additional complaints Physical exam (Primary Care) Vital Signs: Last Vital Signs Temp 98.1 F 01/15/25 09:07 Pulse 63 01/15/25 09:07 Resp 18 01/15/25 09:07 BP 118/76 01/15/25 09:07 Pulse Ox 100 01/15/25 09:07 Oxygen Delivery Method Room Air 01/15/25 09:07 BMI result Body Mass Index 26.8 Tobacco/Smoking Status: Tobacco use Status Tobacco use date assessed 01/15/25 01/15/25 09:12 Patient Tobacco Use Status Never used Tobacco 01/15/25 09:12 e-Cigarette/Vaping Use Never Used 01/15/25 09:12 PHQ-9: PHQ-9 Score PHQ-9: Total score 0 01/15/25 09:12 Depression Screening Interpretation: Negative Thrive Assessment: Date of Thrive Assessment Date Thrive assessed 01/15/25 01/15/25 09:12 Currently or been in a relationship where the following occur: No concerns reported Const General: no acute distress HENMT Head: Yes normal to inspection Ears: TM's normal bilaterally Mouth: Normal oral and palatal mucosa present Teeth and gingiva: dentition normal Eyes General: appearance normal, both eyes and all related structures Neck Neck: Yes no lymphadenopathy and Yes supple Chest Breast/axilla inspection: normal inspection of the breasts Breast/axilla palpation: normal palpation of the breasts and normal palpation of the axillae Resp Effort & Inspection: normal respiratory effort Auscultation: clear to auscultation bilaterally Cardio Rhythm: regular rhythm Heart sounds: S1 normal heart sound present and S2 normal heart sound present GI Inspection: Yes normal to inspection Palpation (GI): Soft to palpation Percussion: Yes normal to percussion Auscultation: normal bowel sounds Speculum Exam - Vagina: normal appearance of the vagina Speculum Exam - Cervix: normal appearance of the cervix Bimanual Exam- Adnexa, other: normal adnexae Coding Level of Care Code Est Pt Prev Care 18-39y(74450) Diagnoses Annual physical exam Z00.00 Additional Codes HEIDI-7 Assessment Billing - HEIDI-7 Assessment Tool: HEIDI-7 Assessment 65416 ([id number]) PHQ-9 - 46342 - PHQ-9 Billing: Yes ([id number]) Assessment & Plan Assessment & Plan (1) Annual physical exam: Code(s): Z00.00 - Encounter for general adult medical examination without abnormal findings Category: Medical Plan: Well-balanced diet regular exercise discussed with the patient. Pap smear was sent today. Patient will have a fasting blood work today Orders: Orders Complete Blood Count Auto Diff Today Z00.00 - Encounter for general adult medical examination without abnormal findings Rubella IgG Antibody Today Z00.00 - Encounter for general adult medical examin ation without abnormal findings Varicella IgG Antibody Today Z00.00 - Encounter for general adult medical examination without abnormal findings UA w Microscopic Today Z00.00 - Encounter for general adult medical examination without abnormal findings HIV Ab/Ag Today Z00.00 - Encounter for general adult medical examination without abnormal findings Syphilis Screen Today Z00.00 - Encounter for general adult medical examination without abnormal findings CT NG by PCR Urine Today Z00.00 - Encounter for general adult medical examination without abnormal findings Pap Smear Today Z00.00 - Encounter for general adult medical examination wit hout abnormal findings Comprehensive [place]. Panel Fast Today Z00.00 - Encounter for general adult medical examination without abnormal findings Lipid Panel Today Z00.00 - Encounter for general adult medical examination without abnormal findings Hepatitis B Surface Antibody Today Z00.00 - Encounter for general adult medical examination without abnormal findings Rubeola IgG (Measles) Today Z. - Encounter for general adult medical examination without abnormal findings Mumps Virus IgG Antibody Today Z00.00 - Encounter for general adult medical examination without abnormal findings
--- OUTSIDE RECORDS SUMMARY | 2025-01-15 09:29 | XMS_ITS | Clinical Summary ---
Author Organization [facility] Address [address] [place] [address] Care Team Providers Care Enologist Name Role Phone Patient, Has No Pcp Or Ref Primary Care Provider Unavailable Allergies No known active allergies Medications norgestimate-eth inyl estradioL (ORTHO-CYCLEN, SPRINTEC) 0.25 mg-35 mcg per tablet Take 1 tablet by mouth once a day. Active Social History Tobacco Use Types Packs/Day Years Used Date Smoking Tobacco: Never Smokeless Tobacco: Never Alcohol Use Standard Drinks/Week Comments Yes 1 (1 standard drink = 0.6 oz pur e alcohol) Comments No Sex and Gender Information Value Date Recorded Sex Assigned at Not on file Legal Sex Female 1:37 AM EST Gender Identity Not on file Sexual Orientation Not on file Last Filed Vital Signs Vital Sign Reading Time Taken Comments Blood Pressure 143/88 07/08/2021 1:42 AM EST Pulse 85 07/08/2021 1:42 AM EST Temperature 36.4 C (97.6 F) 07/08/2021 1:42 AM EST Respiratory Rate 16 07/08/2021 1:42 AM EST Oxygen Saturation 100% 07/08/2021 1:42 AM EST Inhaled Oxygen Concentration - - Weight - - Height - - Body Mass Index - - Plan of Treatment Health Maintenance Due Date Last Done Comments HIV Screening 2000 DTaP,Tdap,and Td Vaccines (2 - Td or Tdap) 12/13/2021 12/14/2011 COVID-19 Vaccine (2 - season) 2024 11/10/2020 Alcohol/Substance Use Screening 05/22/2024 Influenza Vaccine (#1) 2025 3, 04/05/2012, 04/28/2010, Additional history exists RSV Vaccine (60+ years old and patients) (1 - 1-dose 75+ series) 12/16/2075 Varicella Vaccines Completed 02/18/2008, 12/28/2006 HPV Vaccines Completed 07/15/2013, 02/19, 01/02/2013 Hepatitis B Vaccines Completed 10/02/2018, 06/26/2001, 01/24/2001 Pneumococcal Vaccine: Pediatric (0-5 Years) and At-Risk Patients (6-50 Years) Aged Out No longer eligible based on patient's age to complete this topic Insurance 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
--- OUTSIDE RECORDS SUMMARY | 2025-01-15 09:29 | XMS_ITS | Patient Health Record ---
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.19) Active confirmed Problem Pain in limb (32084733) Pain in Limb (729.5) Active confirmed Problem Hammer toe (979714582) Hammer toe (735.4) Active confirmed Plan Of Treatment Pending Test Test Name Order Date [id number] , 1-14 10/29/2012 Insurance Providers Payer Name Payer Address Payer Phone Subscriber Number Group Number Insured Name Patient Relationship to Insured Coverage Start Date Coverage End Date [facility] [address] [place] [address] [id number] Diop Child - Insured has Financial Responsibility Medical (General) History Medical History History ICD Code back, hip, knee pain
--- OUTSIDE RECORDS SUMMARY | 2025-01-15 09:29 | XMS_ITS | Clinical Summary ---
Author Organization [facility] Address [address] [place] [address] Care Team Providers Care Assistant Boys Track Coach Name Role Phone Unavailable Primary Care Provider Unavailabl e Allergies Active Allergy Reactions Criticality Noted Date Comments Pineapple 03/22/2022 Hives Shrimp (Diagnostic) 03/22/2022 Hives Medications Norgestimate-Eth Estradiol (ORTHO-CYCLEN) 0.25-35 MG-MCG per tablet Take 1 tablet by mouth 1 (one) time each day Active Fexofenadine HCl ([facility]) 180 MG tablet Take 180 mg by mouth 1 (one) time each day Active Immunizations Immunization Administration Dates Next Due COVID-19, mRNA (Pfizer Pre F all 2022) Monovalent, 30 mcg/0.3 ml 11/10/2020 Covid-19, mRNA (Pfizer Pre F all 2022) Bivalent, 30 mcg/0.3 ml xiomara-sucrose (12+) dose 05/27/2022 HIB (PRP-T) 04/29/2002, 2,04/27/2001,03/03 HPV4 (Gardasil 4) 07/15/2013,03/08/2013,01/03/20 13 Hep A (pedi) 07/12/2017,05/13/2015 Hep B (pedi) 10/02/2018,06/26/2001,01/24/2001 IPV 01/12/2005, 2,04/27/2001,03/03 Influenza (H1N1) - 04/15/2009 Influenza,injectable,MDCK, P rsrv Fr,Quad 04/03/2022,06/14/2018,05/18/2016 Influenza,injectable,quad,Prsrv Fr 05/12,03/04/2019,01/30/2017,03/24 Influenza,injectable,quad,preservative 5 Influenza,split(incl.purifie d surface antigen) 03/08/2013,04/05/2012,04/28/2010 MMR 01/12/2005,12/28/2001 Meningococcal ACWY (Menactra) 12/22/2017, 013 Meningococcal B (Trumenba) 05/30/2019,10/02/2018 Tdap 12/28/2022,11/09/2021,12/14/2011 Varicella 02/18/2008,12/28/2006 Social History Tobacco Use Types Packs/Day Years Used Date Smoking Tobacco: Never Smokeless Tobacco: Never Tobacco Cessation:Counseling Given: Not Answered Alcohol Use Standard Drinks/Week Comments Yes 0 (1 standard drink = 0.6 oz pur e alcohol) occassional Intimate Partner Violence Answer Date R ecorded Fear of Current or Ex-Partner Not on file Emotionally Abused Not on file 12/31/2022 Physically Abused Not on file 12/31/2022 Sexually Abused Not on file 12/31/2022 Feel Safe at Home Not on file 12/31/2022 Comments Unknown Sex and Gender Information Value Date Recorded Sex Assigned at Not on file Legal Sex Female 4:19 PM EDT Gender Identity Not on file Sexual Orientation Not on file Last Filed Vital Signs Vital Sign Reading Time Taken Comments Blood Pressure 131/88 03/22/2022 3:23 PM EDT Pulse 97 03/22/2022 3:23 PM EDT Temperature 36.9 C (98.5 F) 03/22/2022 3:23 PM EDT Respiratory Rate 16 03/22/2022 3:23 PM EDT Oxygen Saturation 99% 03/22/2022 3:23 PM EDT Inhaled Oxygen Concentration - - Weight - - Height - - Body Mass Index - - Plan of Treatment Health Maintenance Due Date Last Done Comments Hepatitis C Screening 2000 Chlamydia 2016 Pap Smear 2016 COVID-19 Vaccine ( season) 2024 05/27/2022, 11/10/2020 Influenza (#1) 2025 04/03/2022, 04/22, 03/04/2019, Additional history exists DTaP/Tdap/Td (4 - Td or Tdap) 12/28/2032 12/28/2022, 11/09/2021, 12/14/2011 Zoster (Shingrix) (1 of 2) 2050 02/18/2008, Hib Completed 04/29/2002, 09/2001, 04/27/2001, Additional history exists HPV Vaccine Completed 07/15/2013, 02/19, 01/02/2013 Hep A Completed 07/12/2017, 05/13/2015 Meningococcal ACWY Completed 12/22/2017, 01/02/2013 Hep B Completed 10/02/2018, 09/2001, 01/24/2001 Meningococcal B Completed 05/30/2019, 10/02/2018 Pneumococcal Aged Out No longer eligi ble based on patient's age to complete this topic Insurance [employer] [place] [id number]
== END 2025-01-15 10:02 | disposition home or self-care (01) ==
LOC: HO.HMCC 09:03
PROVIDERS: PCP Internal Medicine; Visit Provider Internal Medicine
DX: Z00.00 Encounter for general adult medical examination without abnormal findings (principal)

== ENCOUNTER 2025-01-15 10:01 | Outpatient (REF) | payer OTHER, SELFPAY | END 2025-01-15 10:02 | disposition home or self-care (01) | LOC: HO.LNP 10:01 | PROVIDERS: Visit Provider Internal Medicine | DX: Z00.00 Encounter for general adult medical examination without abnormal findings (principal) | CPT/HCPCS: 88175 ==